=== PATIENT | male | born 1995 | race Caucasian/White ===

== ENCOUNTER 2020-06-23 03:06 | Emergency (ER) | payer BC, OTHER ==
--- NOTE | 2020-06-23 03:10 | ED ---
Psych HPI - General Stated Complaint: Mental Health Time Seen by Provider: 06/23/20 03:07 Source: RN notes reviewed, old records reviewed Mode of arrival: EMS Limitations: altered mental status - History of Present Illness Initial Comments: This is a 25-year-old male poor story coming in for evaluation regarding bipolar manic state. Patient is petition to brought in by EMS for psychiatric evaluation and treatment. Patient himself is difficult to give history is spinning history of present illness MD Complaint: altered mental status -: hour(s) Associated Psychiatric Symptoms: homicidal ideation, auditory hallucinations History of same: Yes Quality: constant Improves With: none Worsens With: none Context: not taking psychiatric medications Associated Symptoms: denies other symptoms Treatments Prior to Arrival: placed on mental health hold If Self Harm: admits thoughts of self harm - Related Data Allergies Allergy/AdvReac Type Severity Reaction Status Date / Time No Known Allergies Allergy Verified 06/23/20 04:56 Review of Systems ROS Statement: Those systems with pertinent positive or pertinent negative responses have been documented in the HPI. ROS Other: All systems not noted in ROS Statement are negative. General Exam General appearance: alert, in no apparent distress, anxious Head exam: Present: atraumatic, normocephalic, normal inspection Eye exam: Present: normal appearance, PERRL, EOMI. Absent: scleral icterus, conjunctival injection, periorbital swelling ENT exam: Present: normal exam, mucous membranes moist Neck exam: Present: normal inspection. Absent: tenderness, meningismus, lymphadenopathy Respiratory exam: Present: normal lung sounds bilaterally. Absent: respiratory distress, wheezes, rales, rhonchi, stridor Cardiovascular Exam: Present: regular rate, normal rhythm, normal heart sounds. Absent: systolic murmur, diastolic murmur, rubs, gallop, clicks GI/Abdominal exam: Present: soft, normal bowel sounds. Absent: distended, tenderness, guarding, rebound, rigid Extremities exam: Present: normal inspection, full ROM, normal capillary refill. Absent: tenderness, pedal edema, joint swelling, calf tenderness Back exam: Present: normal inspection Neurological exam: Present: alert, oriented X3, CN II-XII intact Psychiatric exam: Present: normal affect, normal mood Skin exam: Present: warm, dry, intact, normal color. Absent: rash Course Vital Signs 06/23/20 03:07 Pulse Rate 97 Respiratory 16 Rate Blood Pressure 135/99 O2 Sat by Pulse 100 Oximetry - Reevaluation(s) Reevaluation #1: 06/23/20 04:24 Medical record is reviewed 06/23/20 04:24 Patient's medical clear for psychiatric evaluation Medical Decision Making - Medical Decision Making 25 male seen and evaluated psychiatry patient will be transferred for inpatient psychiatric evaluation and treatment Disposition Clinical Impression: Acute psychosis, Monopolar adalgisa Disposition: TRANSFER TO PSYCH HOSP/UNIT Condition: Fair Is patient prescribed a controlled substance at d/c from ED?: No Referrals: None,Stated [Primary Care Provider] - 1-2 days
[2020-06-23] MEDS ORDERED: LORazepam 2 MG/ML INJ IM STA (04:50)
[2020-06-23 06:18] LABS: Basophils # (A) 0.1 k/uL (0-0.2); Basophils % (A) 1 %; Eosinophils # (A) 0.1 k/uL (0-0.7); Eosinophils % (A) 1 %; HCT 49.8 % (39.0-53.0); HGB 17.4 gm/dL (13.0-17.5); Lymphocytes # (A) 2.2 k/uL (1.0-4.8); Lymphocytes % (A) 19 %; MCH 31.2 pg (25.0-35.0); MCV 89.3 fL (80.0-100.0); Mean Platelet Volume 7.6; Monocytes # (A) 0.8 k/uL (0-1.0); Monocytes % (A) 7 %; Neutrophils # (A) 8.2 k/uL (1.3-7.7); Neutrophils % (A) 71 %; Platelet Count 292 k/uL (150-450); RBC 5.57 m/uL (4.30-5.90); RDW 12.4 % (11.5-15.5); WBC 11.5 k/uL (3.8-10.6)
[2020-06-23 06:44] LABS: ALT 28 U/L (4-49); AST 37 U/L (17-59); African American GFR (CKD) >90 (>60 ml/min/1.73 sqM); Albumin 5.7 g/dL (3.5-5.0); Alkaline Phosphatase 87 U/L (38-126); Anion Gap 17 mmol/L; Blood Urea Nitrogen 21 mg/dL (9-20); Calcium 10.7 mg/dL (8.4-10.2); Carbon Dioxide 21 mmol/L (22-30); Chloride 99 mmol/L (98-107); Glucose 108 mg/dL (74-99); Non-African American GFR(CKD) 88 (>60 ml/min/1.73 sqM); Potassium 3.6 mmol/L (3.5-5.1); Sodium 137 mmol/L (137-145); Total Bilirubin 1.8 mg/dL (0.2-1.3); Total Protein 9.2 g/dL (6.3-8.2)
[2020-06-23 06:58] LABS: Amphetamine Screen,Urine Not Detected (NotDetected); Barbiturate Screen,Urine Not Detected (NotDetected); Benzodiazepines Screen,Urine Not Detected (NotDetected); Cocaine Screen,Urine Not Detected (NotDetected); Methadone Screen, Urine Not Detected (NotDetected); Opiate Screen,Urine Not Detected (NotDetected); Oxycodone Screen, Urine Not Detected (NotDetected); Phencyclidine Screen,Urine Not Detected (NotDetected); Tricyclic Antidepressant,Urine Not Detected (NotDetected); Urn Cannabinoid Scrn Detected (NotDetected)
[2020-06-23] MEDS ORDERED: MULTIVITAMINS, THERA 1 EACH TAB PO STA (11:18)
[2020-06-23 12:39] VITALS: BP 123/87; PULSE 81; RESP 18; TEMP 98.8
== END 2020-06-23 13:06 ==
LOC: EC 03:06
DX: F30.9 Manic episode, unspecified (principal); F23 Brief psychotic disorder
CPT/HCPCS: 82075; 36415; 80053; 85025; 80306; 87635; 99284; J2060

== ENCOUNTER 2023-09-26 15:55 | Emergency (ER) | payer BC, OTHER ==
--- NOTE | 2023-09-26 16:50 | ED ---
Psych HPI - General Source: patient, EMS, RN notes reviewed Mode of arrival: EMS <Mary Gutiérrez - Last Filed: 09/26/23 16:48> - General Source: patient, EMS, RN notes reviewed, old records reviewed Mode of arrival: EMS Limitations: no limitations - History of Present Illness MD Complaint: suicidal ideation, feels depressed Associated Psychiatric Symptoms: depression, suicidal ideation History of same: Yes Quality: constant Improves With: none Worsens With: none Associated Symptoms: denies other symptoms Treatments Prior to Arrival: placed on mental health hold If Self Harm: admits thoughts of self harm <Jeremias Ku - Last Filed: 09/26/23 21:40> <Rohan Mas - Last Filed: 09/27/23 01:33> - General Chief Complaint: Psychiatric Symptoms Stated Complaint: Psych eval Time Seen by Provider: 09/26/23 16:10 - History of Present Illness Initial Comments: Damian notethis is a 28-year-old male presents emergency department via EMS for chief complaint of suicidal ideation. States that he lives in [place] and does not feel safe when he is at home and has been feelings of wanting to harm himself. He denies homicidal ideations. Patient has a history of bipolar disord er. Denies drug or alcohol use. (Mary Gutiérrez) This is a 28-year-old female for psychiatric evaluation. Patient feels like he is going to harm himself (Jeremias Ku) - Related Data Home Medications Medication Instructions Recorded Confirmed Minocycline HCl [Minocin] 100 mg PO BID 06/23/20 06/23/20 Nystatin 100,000 Unit/ml Susp 10 ml PO TID 06/23/20 06/23/20 [Mycostatin Oral Susp] clonazePAM [KlonoPIN] 0.5 mg PO BID 06/23/20 06/23/20 Allergies Allergy/AdvReac Type Severity Reaction Status Date / Time aripiprazole [From Abilify] Allergy Anaphylaxis Verified 09/26/23 16:13 Review of Systems ROS Other: All systems not noted in ROS Statement are negative. <Mary Gutiérrez - Last Filed: 09/26/23 16:48> ROS Other: All systems not noted in ROS Statement are negative. <Jeremias Ku - Last Filed: 09/26/23 21:40> ROS Other: All systems not noted in ROS Statement are negative. <Rohan Mas - Last Filed: 09/27/23 01:33> ROS Statement: Those systems with pertinent positive or pertinent negative responses have been documented in the HPI. Past Medical History Additional Past Medical History / Comment(s): Diagnosed with Lyme Disease 05/2020 History of Any Multi-Drug Resistant Organisms: None Reported Past Surgical History: No Surgical Hx Reported Past Psychological History: Anxiety, Bipolar, Depression Smoking Status: Current some day smoker Past Alcohol Use History: None Reported Past Drug Use History: Marijuana <Mary Gutiérrez - Last Filed: 09/26/23 16:48> General Exam Limitations: no limitations <Mary Gutiérrez - Last Filed: 09/26/23 16:48> General appearance: alert, in no apparent distress Head exam: Present: atraumatic, normocephalic, normal inspection Eye exam: Present: normal appearance, PERRL, EOMI. Absent: scleral icterus, conjunctival injection, periorbital swelling ENT exam: Present: normal exam, mucous membranes moist Neck exam: Present: normal inspection. Absent: tenderness, meningismus, lymphadenopathy Respiratory exam: Present: normal lung sounds bilaterally. Absent: respiratory distress, wheezes, rales, rhonchi, stridor Cardiovascular Exam: Present: regular rate, normal rhythm, normal heart sounds. Absent: systolic murmur, diastolic murmur, rubs, gallop, clicks GI/Abdominal exam: Present: soft, normal bowel sounds. Absent: distended, tenderness, guarding, rebound, rigid Extremities exam: Present: normal inspection, full ROM, normal capillary refill. Absent: tenderness, pedal edema, joint swelling, calf tenderness Back exam: Present: normal inspection Neurological exam: Present: alert, oriented X3, CN II-XII intact Psychiatric exam: Present: normal affect, normal mood Skin exam: Present: warm, dry, intact, normal color. Absent: rash <Jeremias Ku - Last Filed: 09/26/23 21:40> - General Exam Comments Initial Comments: Visual Physical Exam Vital signs reviewed General: Well-appearing, nontoxic, no acute distress. Head: Normocephalic, atraumatic Eyes: PERRLA, EOMI ENT: Airway patent Chest: Nonlabored breathing Skin: No visual rash, normal skin tone Neuro: Alert and oriented 3 Musculoskeletal: No gross abnormalities (Stieler,Mary) Course <KingsJeremias B - Last Filed: 09/26/23 21:40> Vital Signs 09/26/23 16:10 Temperature 97.6 F Pulse Rate 70 Respiratory 18 Rate Blood Pressure 138/78 O2 Sat by Pulse 100 Oximetry - Reevaluation(s) Reevaluation #1: 09/26/23 21:41 Reviewed (Jeremias Ku) Reevaluation #2: 09/26/23 21:41 Medically clear for psychiatric evaluation (Jeremias Ku) Reevaluation #3: Was pt. sent in by a medical professional or institution (ANN Cabrera, OFFICE SERVICES SPECIALIST, urgent care, hospital, or senior living...) When possible be specific @ -no Did you speak to anyone other than the patient for history (EMS, parent, family, police, friend...)? What history was obtained from this source @ -no Did you review nursing and triage notes (agree or disagree)? Why? @ -agree Are old charts reviewed (outside hosp., previous admission, EMS record, old EKG, old radiological studies, urgent care reports/EKG's, senior living records)? Report findings @ -yes Differential Diagnosis (chest pain, altered mental status, abdominal pain women, abdominal pain men, vaginal bleeding, weakness, fever, dyspnea, syncope, headache, dizziness, GI bleed, back pain, seizure, CVA, palpatations, mental health, musculoskeletal)? @ -prior EKG interpreted by me (3pts min.). @ -yes X-rays interpreted by me (1pt min.). @ -yes negative for acute disease CT interpreted by me (1pt min.). @ -no U/S interpreted by me (1pt. min.). @ -no What testing was considered but not performed or refused? (CT, X-rays, U/S, lab s)? Why? @ -none What meds were considered but not given or refused? Why? @ -none Did you discuss the management of the patient with other professionals (professionals i.e. , ANN, OFFICE SERVICES SPECIALIST, lab, RT, psych nurse, licensed social worker, sole painter, teacher, fire control officer, onsite case manager)? Give summary @ -no Was smoking cessation discussed for >3mins.? @ -no Was critical care preformed (if so, how long)? @ -no Were there social determinants of health that impacted care today? How? (Homelessness, low income, unemployed, alcoholism, drug addiction, transportation, low edu. Level, literacy, decrease access to med. care, longterm, rehab)? @ -none Was there de-escalation of care discussed even if they declined (Discuss DNR or withdrawal of care, Hospice)? DNR status @ -no What co-morbidities impacted this encounter? (DM, HTN, Smoking, COPD, CAD, Cancer, CVA, ARF, Chemo, Hep., AIDS, mental health diagnosis, sleep apnea, morbid obesity)? @ -none Was patient admitted / discharged? Hospital course, mention meds given and route, prescriptions, significant lab abnormalities, going to OR and other pertinent info. @ - Undiagnosed new problem with uncertain prognosis? @ -no Drug Therapy requiring intensive monitoring for toxicity (Heparin, Nitro, Insulin, Cardizem)? @ -no Were any procedures done? @ -no Diagnosis/symptom? @ - Acute, or Chronic, or Acute on Chronic? @ -Acute Uncomplicated (without systemic symptoms) or Complicated (systemic symptoms)? @ -Complicated Side effects of treatment? @ -no Exacerbation, Progression, or Severe Exacerbation? @ -exacerbation Poses a threat to life or bodily function? How? (Chest pain, USA, NV, pneumonia, PE, COPD, DKA, ARF, appy, cholecystitis, CVA, Diverticulitis, Homicidal, Suicidal, threat to staff... and all critical care pts) @ -yes (Jeremias Ku) Reevaluation #4: Differential mental health (Jeremias Ku) Medical Decision Making <Mary Gutiérrez - Last Filed: 09/26/23 16:48> <Rohan Mas - Last Filed: 09/27/23 01:33> - Medical Decision Making I completed the quick note portion of this chart signed Mary Gutiérrez PA-C (Mary Gutiérrez) Patient care signed out to me by previous shift physician. Briefly, patient is a 28-year-old male presents to the ER for suicidal ideations. Patient medically clear pending EPS evaluation. Patient was eval by EPS recommended discharge with home safety plan. (Rohan Mas) - Lab Data Lab Results 09/26/23 Range/Units 17:36 Urine Opiates Screen Not Detected (NotDetected) Ur Oxycodone Screen Not Detected (NotDetected) Urine Methadone Screen Not Detected (NotDetected) Ur Barbiturates Screen Not Detected (NotDetected) U Tricyclic Antidepress Not Detected (NotDetected) Ur Phencyclidine Scrn Not Detected (NotDetected) Ur Amphetamines Screen Not Detected (NotDetected) U Methamphetamines Scrn Not Detected (NotDetected) U Benzodiazepines Scrn Not Detected (NotDetected) Urine Cocaine Screen Not Detected (NotDetected) U Marijuana (THC) Screen Not Detected (NotDetected) Disposition <Mary Gutiérrez - Last Filed: 09/26/23 16:48> <Jeremias Ku - Last Filed: 09/26/23 21:40> Is patient prescribed a controlled substance at d/c from ED?: No Time of Disposition: 01:33 <Rohan Mas - Last Filed: 09/27/23 01:33> Clinical Impression: Suicidal ideation Disposition: HOME SELF-CARE Condition: Good Instructions (If sedation given, give patient instructions): Help Prevent Suicide (ED) Referrals: None,Stated [Primary Care Provider] - 1-2 days
[2023-09-26 16:56] VITALS: BP 138/78; PULSE 70; RESP 18; TEMP 97.6
[2023-09-26 17:55] LABS: Amphetamine Screen,Urine Not Detected (NotDetected); Barbiturate Screen,Urine Not Detected (NotDetected); Benzodiazepines Screen,Urine Not Detected (NotDetected); Cocaine Screen,Urine Not Detected (NotDetected); Methadone Screen, Urine Not Detected (NotDetected); Opiate Screen,Urine Not Detected (NotDetected); Oxycodone Screen, Urine Not Detected (NotDetected); Phencyclidine Screen,Urine Not Detected (NotDetected); Tricyclic Antidepressant,Urine Not Detected (NotDetected); Urn Cannabinoid Scrn Not Detected (NotDetected)
[2023-09-26] MEDS: NICOTINE 21MG/24HR PATCH TRANSDERM STA (19:45)
== END 2023-09-27 01:42 | disposition home or self-care (01) ==
LOC: EC 15:55
DX: R45.851 Suicidal ideations (principal); F17.200 Nicotine dependence, unspecified, uncomplicated; Z88.8 Allergy status to other drugs, medicaments and biological substances
CPT/HCPCS: 82075; 80306; 99285; S4990